=== PATIENT | female | born 1995 | race American Indian/Alaskan Native ===

== ENCOUNTER 2016-07-26 23:24 | Emergency (ER) | payer MEDICAID ==
[2016-07-26 23:46] VITALS: BP 121/76
--- NOTE | 2016-07-27 01:41 | Emergency Department Report ---
ED ENT HPI - General Chief complaint: Dental/Oral Stated complaint: TOOTHACHE Source: patient Mode of arrival: Ambulatory Limitations: No Limitations - History of Present Illness Initial comments: Patient comes into the ER today with complaints of dental pain for the past 3 weeks. Patient states that she was eating some shrimp about 3 weeks ago and her right posterior upper tooth cracked. Patient further notes that she had a lower tooth already cracked and it seems to be hurting more the past few days as well. Patient denies any fever, vomiting, sore throat. Patient does state that her right ear hurts as well. Patient has not been able to see a dentist as of yet. Did take some Tylenol [id number] without any relief. - Related Data Previous Rx's Medication Instructions Recorded Last Taken Type Vit W-Ca,Fe,FA(<1 mg) 1 each PO QDAY #30 tablet 02/29/16 1 Day Ago Rx [ Vitamins] Amoxicillin 1,000 mg PO BID #40 capsule 07/27/16 Unknown Rx traMADol [Ultram] 50 mg PO Q6HR PRN #20 tablet 07/27/16 Unknown Rx Allergies Allergy/AdvReac Type Severity Reaction Status Date / Time ondansetron HCl Allergy Rash Verified 02/28/16 15:42 [From Zofran (as hydrochloride)] ED Dental HPI - General Chief complaint: Dental/Oral Stated complaint: TOOTHACHE Source: patient Mode of arrival: Ambulatory Limitations: No Limitations - Related Data Previous Rx's Medication Instructions Recorded Last Taken Type Vit W-Ca,Fe,FA(<1 mg) 1 each PO QDAY #30 tablet 02/29/16 1 Day Ago Rx [ Vitamins] Amoxicillin 1,000 mg PO BID #40 capsule 07/27/16 Unknown Rx traMADol [Ultram] 50 mg PO Q6HR PRN #20 tablet 07/27/16 Unknown Rx Allergies Allergy/AdvReac Type Severity Reaction Status Date / Time ondansetron HCl Allergy Rash Verified 02/28/16 15:42 [From Zofran (as hydrochloride)] ED Review of Systems ROS: Stated complaint: TOOTHACHE Other details as noted in HPI Constitutional: denies: chills, fever Eyes: denies: eye pain, eye discharge, vision change ENT: ear pain, dental pain, epistaxis, congestion. denies: throat pain Respiratory: denies: cough, shortness of breath, wheezing Cardiovascular: denies: chest pain, palpitations Endocrine: no symptoms reported Gastrointestinal: denies: abdominal pain, nausea, diarrhea Genitourinary: denies: urgency, dysuria, discharge Musculoskeletal: denies: back pain, joint swelling, arthralgia Skin: denies: rash, lesions Neurological: denies: headache, weakness, paresthesias Psychiatric: denies: anxiety, depression Hematological/Lymphatic: denies: easy bleeding, easy bruising ED Past Medical Hx - Surgical History Additional Surgical History: mouth - Social History Smoking Status: Never Smoker Substance Use Type: None - Medications Home Medications: Home Medications Medication Instructions Recorded Confirmed Last Taken Type Vit W-Ca,Fe,FA(<1 mg) 1 each PO QDAY #30 tablet 02/29/16 07/27/16 1 Day Ago Rx [ Vitamins] Amoxicillin 1,000 mg PO BID #40 capsule 07/27/16 Unknown Rx traMADol [Ultram] 50 mg PO Q6HR PRN #20 tablet 07/27/16 Unknown Rx ED Physical Exam - General Limitations: No Limitations General appearance: alert, in no apparent distress - Head Head exam: Present: atraumatic, normocephalic - Eye Eye exam: Present: normal appearance - ENT ENT exam: Present: mucous membranes moist, TM's normal bilaterally, normal external ear exam, other (right greater than left nasal mucosa redness and turbinate swelling. Right maxillary sinus tenderness on percussion. Right upper and lower dental fractures noted. Minimal surrounding gum tissue redness without any visible abscess.) - Neck Neck exam: Present: normal inspection, full ROM. Absent: tenderness, lymphadenopathy - Respiratory Respiratory exam: Present: normal lung sounds bilaterally. Absent: respiratory distress - Cardiovascular Cardiovascular Exam: Present: regular rate, normal rhythm. Absent: systolic murmur, diastolic murmur, rubs, gallop - GI/Abdominal GI/Abdominal exam: Present: soft, distended (consistent with being ), normal bowel sounds. Absent: tenderness - Extremities Exam Extremities exam: Present: normal inspection - Back Exam Back exam: Present: normal inspection - Neurological Exam Neurological exam: Present: alert, oriented X3 - Psychiatric Psychiatric exam: Present: normal affect, normal mood - Skin Skin exam: Present: warm, dry, intact, normal color. Absent: rash ED Course Vital Signs 07/26/16 23:43 Temperature 98.3 F Pulse Rate 88 Respiratory 18 Rate Blood Pressure 121/76 O2 Sat by Pulse 100 Oximetry ED Medical Decision Making - Medical Decision Making Patient is nontoxic and hemodynamically stable. Patient does have obvious dental fractures noted on exam today. I believe some of her increased sensitivity is most likely related to underlying infection. Patient does have exam consistent with sinus infection as well. I will start patient on course of antibiotics as well has prescribed her something for the pain. Patient is to follow-up with her dentist to ensure resolution of her injuries. Patient is stable for discharge and is agreement with treatment plan. Critical care attestation.: If time is entered above; I have spent that time in minutes in the direct care of this critically ill patient, excluding procedure time. ED Disposition Clinical Impression: Pain, dental, Fracture, tooth, Sinusitis Disposition: DISCHARGED TO HOME OR SELFCARE Is pt being admited?: No Does the pt Need Aspirin: No Condition: Stable Instructions: Toothache (ED), Sinusitis (ED) Prescriptions: Amoxicillin 1,000 mg PO BID #40 capsule traMADol [Ultram] 50 mg PO Q6HR PRN #20 tablet PRN Reason: Pain Referrals: PRIMARY CARE, [Primary Care Provider] - 3-5 Days [facility] [Outside] - 3-5 Days Time of Disposition: 01:42
== END 2016-07-27 01:59 | disposition home or self-care (01) ==
LOC: ED 23:24
DX: S02.5XXA Fracture of tooth (traumatic), initial encounter for closed fracture (principal); J32.9 Chronic sinusitis, unspecified; Z88.8 Allergy status to other drugs, medicaments and biological substances; X58.XXXA Exposure to other specified factors, initial encounter; Y93.89 Activity, other specified; Y99.8 Other external cause status; Y92.89 Other specified places as the place of occurrence of the external cause
CPT/HCPCS: 99282

== ENCOUNTER 2016-08-19 15:59 | Outpatient (CLI) | payer MEDICAID ==
[2016-08-19 16:27] VITALS: BP 117/63
== END 2016-08-19 17:50 | disposition home or self-care (01) ==
LOC: TRG 15:59
PROVIDERS: ATTEND Obstetrics & Gynecology
DX: O47.03 False labor before 37 completed weeks of gestation, third trimester (principal); Z3A.34 34 weeks gestation of pregnancy
CPT/HCPCS: 59025

== ENCOUNTER 2016-08-23 13:18 | Emergency (ER) | payer MEDICAID | END 2016-08-23 14:05 | disposition left against medical advice (07) | LOC: ED 13:18 | DX: Z53.21 Procedure and treatment not carried out due to patient leaving prior to being seen by health care provider (principal) ==

== ENCOUNTER 2016-09-15 11:00 | Outpatient (CLI) | payer MEDICAID ==
[2016-09-15 11:21] VITALS: BP 129/85
== END 2016-09-15 13:02 | disposition home or self-care (01) ==
LOC: TRG 11:00
PROVIDERS: ATTEND Obstetrics & Gynecology
DX: O47.1 False labor at or after 37 completed weeks of gestation (principal); Z3A.37 37 weeks gestation of pregnancy
CPT/HCPCS: 59025

== ENCOUNTER 2016-09-19 15:42 | Outpatient (CLI) | payer MEDICAID ==
[2016-09-19 16:58] LABS: Bacteria,Urine 2+ /HPF (Negative); Bilirubin,Urine NEG (Negative); Blood,Urine NEG (Negative); Ketones,Urine NEG (Negative); Leukocyte Esterase,Urine SM (Negative); Mucus,Urine FEW /HPF; Nitrite,Urine NEG (Negative); Protein,Urine <15 mg/dL mg/dL (Negative); Urobilinogen,Urine < 2.0 mg/dL (<2.0)
[2016-09-19 17:29] LABS: Hematocrit 25.4 % (30.3-42.9); Hemoglobin 8.4 gm/dl (10.1-14.3); Mean Corpuscular HGB Conc 33 % (30-34); Mean Corpuscular Hemoglobin 26 pg (28-32); Mean Corpuscular Volume 79 fl (79-97); Platelet Count 204 K/mm3 (140-440); Red Cell Distribution Width 15.7 % (13.2-15.2)
[2016-09-19 17:30] LABS: Alanine Aminotransferase 12 units/L (7-56); Lactate Dehydrogenase 232 units/L (91-180); Uric Acid 3.6 mg/dL (3.5-7.6)
[2016-09-19 17:50] VITALS: BP 132/71
== END 2016-09-19 18:03 | disposition home or self-care (01) ==
LOC: TRG 15:42
PROVIDERS: ATTEND Obstetrics & Gynecology
DX: O47.1 False labor at or after 37 completed weeks of gestation (principal); Z3A.38 38 weeks gestation of pregnancy
CPT/HCPCS: 36415; 59025; 81001; 82565; 83615; 84450; 84460; 84550; 85027

== ENCOUNTER 2016-10-05 19:30 | Emergency (ER) | payer MEDICAID ==
[2016-10-05] MEDS ORDERED: TYLENOL PO ONE (20:23)
[2016-10-05] MEDS ORDERED: TYLENOL ONE (20:25)
[2016-10-05 20:59] LABS: Basophils % (Auto) 0.2 % (0.0-1.8); Eosinophils % (Auto) 2.2 % (0.0-4.3); Hematocrit 26.7 % (30.3-42.9); Hemoglobin 8.5 gm/dl (10.1-14.3); Mean Corpuscular HGB Conc 32 % (30-34); Mean Corpuscular Volume 79 fl (79-97); Platelet Count 264 K/mm3 (140-440); Red Blood Count 3.37 M/mm3 (3.65-5.03); Red Cell Distribution Width 17.4 % (13.2-15.2); White Blood Count 8.4 K/mm3 (4.5-11.0)
[2016-10-05 21:16] LABS: Bacteria,Urine 1+ /HPF (Negative); Bilirubin,Urine NEG (Negative); Blood,Urine LG (Negative); Ketones,Urine NEG (Negative); Leukocyte Esterase,Urine LG (Negative); Mucus,Urine FEW /HPF; Nitrite,Urine NEG (Negative); Urobilinogen,Urine < 2.0 mg/dL (<2.0)
[2016-10-05 21:18] LABS: Mean Corpuscular Hemoglobin 25 pg (28-32)
[2016-10-05 21:37] LABS: Alanine Aminotransferase 102 units/L (7-56); Albumin 3.4 g/dL (3.9-5); Alkaline Phosphatase 133 units/L (35-129); Anion Gap 19 mmol/L; Blood Urea Nitrogen 7 mg/dL (7-17); Calcium 9.1 mg/dL (8.4-10.2); Carbon Dioxide 24 mmol/L (22-30); Glucose 96 mg/dL (65-100); Potassium 4.1 mmol/L (3.6-5.0); Sodium 142 mmol/L (137-145); Total Protein 6.7 g/dL (6.3-8.2)
[2016-10-05] MEDS ORDERED: FIORICET PO ONE (23:17)
[2016-10-05] MEDS ORDERED: XYLOCAINE 1% MPF 5 mL INFILTRATI ONE (23:24)
[2016-10-05] MEDS ORDERED: ROCEPHIN IM ONE (23:24)
--- NOTE | 2016-10-05 23:30 | Emergency Department Report ---
HPI - General Chief Complaint: Back Pain/Injury Time Seen by Provider: 10/05/16 23:07 - HPI HPI: Room 18 The patient is a 21-year-old female presenting with a chief complaint of back pain and headache. The patient is status post spontaneous vaginal delivery . The patient received an epidural for anesthesia. The patient reportedly complaint of back pain during the admission and was seen by Dr. Thornton (anesthesia) who documents that the patient's pain had resolved at the time. Patient acknowledges she was given pain medication and she did not have back pain at the time she was seen by the anesthesiologist. The patient states when she went home she developed a headache in addition to her back pain. The patient states she was instructed to notify the anesthesiologist if she develops a headache. Patient presents with a headache and gives it a score of 8/10. Patient is not breast-feeding. Patient denies paresthesia or rales/ bladder incontinence. There is no history of fever. Location: [see above] Duration: [see above] Quality: Headache Severity:8/10 Modifying factors: Standing up increases the headache, lying down helps it improve somewhat Context: [see above] Mode of transportation: [not driving] ED Past Medical Hx - Past Medical History Previous Medical History?: No - Surgical History Past Surgical History?: No Additional Surgical History: mouth - Family History Family history: no significant - Social History Smoking Status: Never Smoker Substance Use Type: None - Medications Home Medications: Home Medications Medication Instructions Recorded Confirmed Last Taken Type Ferrous Sulfate [Feosol 325 MG tab] 325 mg PO BID #60 tablet 10/02/16 Unknown Rx Ibuprofen [Motrin 800 MG tab] 800 mg PO Q6H PRN #30 tablet 10/02/16 Unknown Rx oxyCODONE /ACETAMINOPHEN [Percocet 1 - 2 tab PO Q4H PRN #30 tablet 10/02/16 Unknown Rx 5/325 mg] Docusate Sodium [Colace] 100 mg PO BID PRN #60 capsule 10/03/16 Unknown Rx Butalb/Acetamin/Caff 50-325-40 1 - 2 tab PO Q4H PRN #24 tab 10/05/16 Unknown Rx [Fioricet] Ciprofloxacin HCl [Ciprofloxacin 500 mg PO Q12HR #20 tab 10/05/16 Unknown Rx TAB] ED Review of Systems ROS: Stated complaint: POST DELIVERY/BACK/FEET PAIN/ERNST Other details as noted in HPI Comment: All other systems reviewed and negative Constitutional: denies: chills, fever Eyes: denies: eye pain, eye discharge, vision change ENT: denies: ear pain, throat pain Respiratory: denies: cough, shortness of breath, wheezing Cardiovascular: denies: chest pain, palpitations Endocrine: no symptoms reported Gastrointestinal: denies: abdominal pain, nausea, diarrhea Genitourinary: denies: urgency, dysuria, discharge Musculoskeletal: back pain Skin: denies: rash, lesions Neurological: headache Psychiatric: denies: anxiety, depression Hematological/Lymphatic: denies: easy bleeding, easy bruising Physical Exam - Physical Exam Vital Signs: Vital Signs 10/05/16 20:19 Temperature 98.0 F Pulse Rate 83 Respiratory 17 Rate Blood Pressure 159/96 Blood Pressure 159/96 [Left] O2 Sat by Pulse 100 Oximetry Physical Exam: GENERAL: The patient is well-developed well-nourished female lying on stretcher not appearing to be in acute distress. [] HEENT: Normocephalic. Atraumatic. Extraocular motions are intact. Patient has moist mucous membranes. NECK: Supple. No meningitic signs are noted. Trachea midline CHEST/LUNGS: Clear to auscultation. There is no respiratory distress noted. HEART/CARDIOVASCULAR: Regular. There is no tachycardia. There is no gallop rub or murmur. ABDOMEN: Abdomen is soft, nontender. Patient has normal bowel sounds. There is no abdominal distention. SKIN: There is no rash. There is no edema. There is no diaphoresis. NEURO: The patient is awake, alert, and oriented. The patient is cooperative. The patient has no focal neurologic deficits. The patient has normal speech. Cranial nerves II through XII grossly intact, no drift. Normal sensation throughout. Moves all extremities well. MUSCULOSKELETAL: There is no evidence of acute injury. ED Course Vital Signs 10/05/16 20:19 Temperature 98.0 F Pulse Rate 83 Respiratory 17 Rate Blood Pressure 159/96 Blood Pressure 159/96 [Left] O2 Sat by Pulse 100 Oximetry - Consultations Consultation #1: 10/05/16 23:50 Case discussed with the anesthesiologist Dr. Villarreal-states she was discussed blood patch procedure with the patient and patient's mother at length however patient refuses at this time. The patient was given strong warnings to return should her symptoms persist. Requests patient be given a prescription for Fioricet one to 2 pills every 4 hours as needed not to exceed 6 pills per day. ED Medical Decision Making - Lab Data Result diagrams: 10/05/16 20:38 10/05/16 20:38 Laboratory Tests 10/05/16 10/05/16 10/05/16 20:38 20:38 Unknown WBC 8.4 RBC 3.37 L Hgb 8.5 L Hct 26.7 L MCV 79 MCH 25 L MCHC 32 RDW 17.4 H Plt Count 264 Lymph % (Auto) 10.6 L [place] % (Auto) 5.1 Eos % (Auto) 2.2 Baso % (Auto) 0.2 Lymph # 0.9 L [place] # 0.4 Eos # 0.2 Baso # 0.0 Seg Neutrophils % 81.9 H Seg Neutrophils # 6.9 Sodium 142 Potassium 4.1 Chloride 103.0 Carbon Dioxide 24 Anion Gap 19 BUN 7 Creatinine 0.7 Estimated GFR > 60 BUN/Creatinine Ratio 10.00 Glucose 96 Calcium 9.1 Total Bilirubin 0.20 AST 101 H ALT 102 H Alkaline Phosphatase 133 H Total Protein 6.7 Albumin 3.4 L Albumin/Globulin Ratio 1.0 Urine Color Yellow Urine Turbidity Clear Urine pH 7.0 Ur Specific [place] 1.006 Urine Protein 30 mg/dl Urine Glucose (UA) Neg Urine Ketones Neg Urine Blood Lg Urine Nitrite Neg Urine Bilirubin Neg Urine Urobilinogen < 2.0 Ur Leukocyte Esterase Lg Urine WBC (Auto) 106.0 H Urine RBC (Auto) 140.0 U Epithel Cells (Auto) 3.0 Urine Bacteria (Auto) 1+ Urine WBC Clumps 3+ Ur Transition Epith Cell 2 Urine Mucus Few - Differential Diagnosis post lumbar puncture headache, pyelonephritis, UTI Critical care attestation.: If time is entered above; I have spent that time in minutes in the direct care of this critically ill patient, excluding procedure time. ED Disposition Clinical Impression: Post lumbar puncture headache, UTI (urinary tract infection) Disposition: -01 TO HOME OR SELFCARE Is pt being admited?: No Does the pt Need Aspirin: No Condition: Stable Instructions: Urinary Tract Infection in Women (ED) Additional Instructions: Return to the emergency department immediately should you develop worsening symptoms, fever, inability to tolerate food or liquid or any other concerns. Prescriptions: Butalb/Acetamin/Caff 50-325-40 [Fioricet] 1 - 2 tab PO Q4H PRN #24 tab PRN Reason: Headache Ciprofloxacin HCl [Ciprofloxacin TAB] 500 mg PO Q12HR #20 tab Referrals: PRIMARY CARE, [Primary Care Provider] - 3-5 Days Time of Disposition: 23:53
--- NOTE | 2016-10-05 23:58 | Progress Note ---
Subjective Date of service: 10/05/16 Principal diagnosis: Post dural puncture headache Interval history: Patient seen in ED with symptoms consistant with post dural puncture headache. She is a patient of Dr [facility] practice. 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 Epidural was smooth placement by me without any notice of CSF backflow through epidural needle and no profound hypotension or unusual block level during epidural infusion, however she still experiences classic symptoms of spinal headache. I explained to her the treatment options of blood patch, however she is not interested in undergoing procedure at this time. I explained to her that it is very effective in treating the symptoms of spinal headache but was unable to convince her to undergo procedure. I also explained to her mother the blood patch treatment option, and her mother was also not wanting Ms Thornton to have procedure at this time. For now she is opting for conservative management of bedrest, staying hydrated, caffeinated beverages, and fiorcet for analgesia. Fiorcet can be taken 1-2 tabs every 4 hours not to exceed 6 tabs in a day. I explained to her that conservative management may not alleviate symptoms and at any time she can return to the hospital to receive blood patch. I have spoken to ED physician Dr Mann who will discharge her with these instruction. Objective - Constitutional Vitals: Vital Signs - 12hr 10/05/16 20:19 Temperature 98.0 F Pulse Rate 83 Respiratory 17 Rate Blood Pressure 159/96 Blood Pressure 159/96 [Left] O2 Sat by Pulse 100 Oximetry - Labs CBC & Chem 7: 10/05/16 20:38 10/05/16 20:38 Labs: Abnormal lab results 10/05/16 10/05/16 10/05/16 Range/Units 20:38 20:38 Unknown RBC 3.37 L (3.65-5.03) M/mm3 Hgb 8.5 L (10.1-14.3) gm/dl Hct 26.7 L (30.3-42.9) % MCH 25 L (28-32) pg RDW 17.4 H (13.2-15.2) % Lymph % (Auto) 10.6 L (13.4-35.0) % Lymph # 0.9 L (1.2-5.4) K/mm3 Seg Neutrophils % 81.9 H (40.0-70.0) % AST 101 H (5-40) units/L ALT 102 H (7-56) units/L Alkaline Phosphatase 133 H (35-129) units/L Albumin 3.4 L (3.9-5) g/dL Urine WBC (Auto) 106.0 H (0.0-6.0) /HPF
[2016-10-06 00:27] VITALS: BP 171/98
== END 2016-10-06 00:29 | disposition home or self-care (01) ==
LOC: ED 19:30
DX: G97.1 Other reaction to spinal and lumbar puncture (principal); R51 Headache; N39.0 Urinary tract infection, site not specified; Z98.890 Other specified postprocedural states; Z88.8 Allergy status to other drugs, medicaments and biological substances
CPT/HCPCS: 36415; 80053; 81001; 85025; 87086; 96372; 99283; J0696

== ENCOUNTER 2016-10-10 11:53 | Day surgery (SDC) | payer MEDICAID ==
--- NOTE | 2016-10-09 15:43 | Progress Note ---
Subjective Date of service: 10/09/16 Principal diagnosis: Headache Interval history: Patient was suppose to come do epidural blood patch today but did not have a ride. Will reschedule patient for tomorrow at 1:[address] Malinda Villarreal.
[2016-10-10 12:26] VITALS: BP 120/84
--- NOTE | 2016-10-10 12:41 | Post Operative Note ---
Pre-op diagnosis: Dural puncture headache Post-op diagnosis: same Findings: Patient presents for epidural blood patch 8 days post delivery after having epidural for labor pain. Patient referred by OB provider Dr. Acevedo. Patient in sitting position on stretcher. Lower back prepped with betadine scrub x3 and draped with standard epidural drape. Skin over L4-L5 anesthetized with approx 3cc of lidocaine 1%. 18g epidural needle inserted into L4-L5 space and epidural space identified with loss of resistance technique. Once epidural space accessed, 20cc of blood was drawn from patients left antecubital vein. blood was slowly injected via touhy needle and after 13cc of blood injected, patient stated that her headache is resolved and she is feeling some lower back pressure. At this point procedure deemed complete and successful. Patient placed in supine position on bed. Procedure: Lumbar epidural blood patch Anesthesia: local Surgeon: TR GARCIA In Store Marketer: VIPIN WETZEL Estimated blood loss: none Pathology: none Condition: stable Disposition: same day
== END 2016-10-10 13:21 | disposition home health service (06) ==
LOC: OR 11:53
PROVIDERS: ATTEND Anesthesiology
DX: G97.1 Other reaction to spinal and lumbar puncture (principal)
CPT/HCPCS: 62273